=== PATIENT | male | born 1960 | race Caucasian/White ===

== ENCOUNTER → 2017-01-09 | Day surgery (SDC) | payer OTHER ==
[~2017-01-09] MED LIST: ASPI-482 PO; ATOR40TA59 PO; HYDROmorphone 2 MG/ML VIAL IV PRN; IV RINGERS,LACTATED 1000ML 1,000 ML IV SCH; LIDOCAINE 1% PF 2 ML VIAL. ID PRN; LIDOCAINE 2% PF Vial for OR 5 ML VIAL. ONE; METO25TA4 PO; MORPHINE SULFATE 2 MG/ML DISP.SYRIN. IV PRN; ONDANSETRON PF 4 MG/2 ML VIAL. IV PRN; PROCHLORPERAZINE 10 MG/2 ML VIAL. IV PRN; PROPOFOL 40 ML IV ONE; fentaNYL PF VIAL 100 MCG/2 ML VIAL IV PRN
--- NOTE | 2017-01-09 09:16 | CONS ---
DATE OF CONSULTATION: 01/09/2017 REFERRING PHYSICIAN: Latrell Pugh MD. REASON FOR CONSULTATION: Colorectal screening. HISTORY OF PRESENT ILLNESS: A 56-year-old male with past medical history significant for heart disease, hyperlipidemia, is seen for screening colon exam. Bowel habits are regular without diarrhea or constipation. There has been no melena and/or hematochezia. Weight and appetite are stable. Family history is unrevealing for colon polyps or colon cancer. He is otherwise without additional complaints. PAST MEDICAL HISTORY: Hypertension, hyperlipidemia, organic heart disease. ALLERGIES: None. MEDICATIONS: Aspirin, atorvastatin, metoprolol. FAMILY AND SOCIAL HISTORY: Significant for breast cancer with mother and a sibling. Diabetes with father and paternal grandmother. Hypertension, paternal grandmother. PA with father and paternal grandmother. PAST SURGICAL HISTORY: Bypass grafting. REVIEW OF SYSTEMS: Per records. PHYSICAL EXAMINATION: GENERAL: Reveals a well-nourished, well-developed male who is alert, cooperative, no acute distress. VITAL SIGNS: Temperature 98.1, pulse 96, respirations 20. HEENT: Normocephalic and atraumatic head. Pupils and extraocular muscles not tested. Sclerae anicteric. NECK: Supple. LUNGS: Clear. CARDIOVASCULAR: Reveals S1, S2, without S3, S4 or appreciable murmur. ABDOMEN: Soft abdomen, normal bowel sounds, without appreciable hepatosplenomegaly. EXTREMITIES: Reveals no cyanosis, clubbing or edema. IMPRESSION: Colorectal screening is warranted at this time. Risks and benefits of procedure have been previously discussed with the patient, including the risk of hemorrhage and perforation. She is willing to proceed at this time. I would like to thank Dr. Pugh for allowing us to consult and participate in the patient's care. PATO STRICKLAND MD DR: ELVIN/javad JOB#: [id number] / [id number]
[2017-01-09 09:43] VITALS: BP 105/59
--- NOTE | 2017-01-11 00:02 | PATHOLOGY ---
PATHOLOGY REPORT * * * * * * * * FINAL DIAGNOSIS: Colon biopsy, descending colon polyp: - Tubular adenoma. (JPM:natalie; 01/10/2017) COMMENT: There is no high-grade dysplasia or evidence of malignancy. REPORT ELECTRONICALLY SIGNED BY: Chi Maldonado M.D. DATE/TIME: 01/10/2017 15:45 * * * * * * * * GROSS PATHOLOGY: Received in formalin labeled "Carlos Kimble, descending colon polyp," is a 0.6 x 0.4 x 0.5 cm polypoid piece of beyer soft tissue. The margin is inked and the tissue is sectioned perpendicular to the margin and submitted in its entirety in cassette A1. (TSD; 01/09/2017) INITIAL CPT CODE(S): A; 31296 Professional services performed [place] [address] Technical services performed by [facility] at [address] [place] [address]. SPECIMEN(S) RECEIVED: A.Descending colon polyp CLINICAL HISTORY: [facility] PATIENT: CARLOS KIMBLE /AGE: 406/18/1960 (Age: 56) PATIENT #: [id number] ALT CASE #: SPECIMEN COLLECTION DATE: 01/09/2017 SPECIMEN RECEIVED DATE: 01/09/2017 [facility] - [address] [place] [address] - PHONE: [phone] * * * END OF REPORT * * *
== END | disposition home or self-care (01) ==
LOC: ENDOS 07:21
PROVIDERS: ATTEND Internal Medicine Gastroenterology
DX: Z12.11 Encounter for screening for malignant neoplasm of colon (principal); D12.4 Benign neoplasm of descending colon; K64.0 First degree hemorrhoids; I25.10 Atherosclerotic heart disease of native coronary artery without angina pectoris; E78.00 Pure hypercholesterolemia, unspecified; E78.5 Hyperlipidemia, unspecified; F17.200 Nicotine dependence, unspecified, uncomplicated; Z79.82 Long term (current) use of aspirin; Z72.89 Other problems related to lifestyle
CPT/HCPCS: 45385; 88305; J2704; J2001